=== PATIENT | male | born 1990 | race Hispanic/Latino ===

== ENCOUNTER 2018-02-02 21:23 | Emergency (ER) | payer OTHER ==
[2018-02-02] MEDS ORDERED: AMOXicillin 250 MG CAP ONE (21:54)
== END 2018-02-02 21:57 | disposition home or self-care (01) ==
LOC: MADERS 21:23
DX: H65.92 Unspecified nonsuppurative otitis media, left ear (principal)
CPT/HCPCS: 99282

== ENCOUNTER 2018-05-17 22:28 | Emergency (ER) | payer MEDICAID, OTHER | END 2018-05-18 00:30 | disposition left against medical advice (07) | LOC: MADERS 22:28 | DX: Z53.21 Procedure and treatment not carried out due to patient leaving prior to being seen by health care provider (principal) ==

== ENCOUNTER 2020-04-02 01:16 | Emergency (ER) | payer MEDICAID, OTHER, SELFPAY ==
[2020-04-02] MEDS ORDERED: Benzonatate 100 MG CAP ONE (02:04)
[2020-04-02] MEDS ORDERED: Dexamethasone 4 MG TAB ONE (02:04)
[2020-04-02] MEDS ORDERED: Azithromycin 250 MG TAB ONE (02:04)
--- NOTE | 2020-04-02 08:26 | RAD ---
PA AND LATERAL VIEWS CHEST: HISTORY: Hemoptysis. FINDINGS/IMPRESSION: The heart size is enlarged. No lobar consolidation, pneumothoraces, hugo pulmonary edema, or pleura l effusions are seen. POS: [facility]
== END 2020-04-02 02:15 | disposition home or self-care (01) ==
LOC: MADERS 01:16
DX: J18.9 Pneumonia, unspecified organism (principal); Z87.891 Personal history of nicotine dependence
CPT/HCPCS: 71046; J8540

== ENCOUNTER 2020-05-29 21:53 | Emergency (ER) | payer OTHER ==
[2020-05-31 14:19] LABS: SARS-CoV-2 MS2 Positive; SARS-CoV-2 N Gene Negative; SARS-CoV-2 S Gene Negative; SARS-CoV-2 orf1ab Negative
== END 2020-05-29 22:37 | disposition home or self-care (01) ==
LOC: MADERS 21:53
DX: Z20.828 Contact with and (suspected) exposure to other viral communicable diseases (principal); Z87.891 Personal history of nicotine dependence
CPT/HCPCS: 87635; 99283; U0003